=== PATIENT | female | born 1960 | race Caucasian/White ===

== ENCOUNTER 2022-07-17 18:27 | Emergency (ER) | payer MEDICARE ==
[~2022-07-17] VITALS: Ht 170.2 cm; Wt 59.0 kg
--- NOTE | 2022-07-17 19:47 | NUR ---
Dr Mcdonnell at bedside MSE in progress
[2022-07-17] MEDS ORDERED: IBUPROFEN 600 MG TABLET PO ONE (20:00)
[2022-07-17] MEDS ORDERED: IBUPROFEN 600 MG TABLET ONE (20:27)
--- NOTE | 2022-07-17 20:30 | NUR ---
Patient A/O x4. NAD noted. Ambulatory with a steady gait.
[2022-07-17] MEDS ORDERED: IBUP-1955 PO (20:41)
--- NOTE | 2022-07-17 20:45 | NUR ---
Patient discharged to home in stable condition. A/O x4. NAD noted. Ambulatory with a steady gait. All belongings with patient. Written and verbal after care instructions given. Patient verbalizes understanding of instructions. Stressed follow up or return to ER for worsening s/s.
[2022-07-17 21:00] VITALS: BP 134/85
== END 2022-07-17 20:45 | disposition home or self-care (01) ==
LOC: ER 18:42
DX: S93.602A Unspecified sprain of left foot, initial encounter (principal); W18.43XA Slipping, tripping and stumbling without falling due to stepping from one level to another, initial encounter; Y92.89 Other specified places as the place of occurrence of the external cause; Z85.850 Personal history of malignant neoplasm of thyroid; E89.0 Postprocedural hypothyroidism
CPT/HCPCS: 73630; A4663